=== PATIENT | male | born 1970 | race Caucasian/White ===

== ENCOUNTER 2022-02-27 13:31 | Day surgery (SDC) | payer OTHER ==
[2022-02-27] MEDS ORDERED: LIDOCAINE HCL 2% 100 MG/5 ML IJ ONE (13:32)
[2022-02-27] MEDS ORDERED: Depo-Medrol 40 MG/ML IM ONE (13:32)
[2022-02-27] MEDS ORDERED: DIPRIVAN 200 MG/20 ML IV ONE (16:31)
[2022-02-27] MEDS ORDERED: Lactated Ringers 1,000 ML IV ONE (17:33)
--- NOTE | 2022-02-27 19:20 | XRAY ---
Indication: Bilateral L4-S1 MBB. Intraoperative fluoroscopy provided for 14 seconds. Single digital spot image submitted for interpretation demonstrates posterior needle tips projecting over the expected left and right L4-S1 nerve roots. Correlate with intraoperative findings/report.
--- NOTE | 2022-02-28 08:32 | XRAY ---
14 seconds of fluoroscopy was used in surgery for a bilateral L4-S1 MBB.
== END 2022-02-27 17:00 | disposition home or self-care (01) ==
LOC: SDC-PAIN 13:31
PROVIDERS: ATTEND Psychiatry & Neurology Pain Medicine
DX: M47.816 Spondylosis without myelopathy or radiculopathy, lumbar region (principal); Z79.899 Other long term (current) drug therapy
CPT/HCPCS: 64493; 64494; 72020; 77002; J1030; J2704

== ENCOUNTER 2022-03-13 08:33 | Day surgery (SDC) | payer OTHER ==
[2022-03-13] MEDS ORDERED: BUPIVACAINE 0.5% VIAL IJ ONE (08:34)
[2022-03-13] MEDS ORDERED: Depo-Medrol 40 MG/ML IM ONE (08:34)
--- NOTE | 2022-03-13 11:17 | XRAY ---
Indication: Bilateral L4-S1 MBB. Intraoperative fluoroscopy provided for 14 seconds. Single digital spot image submitted for interpretation demonstrates posterior needle tips projecting over the expected left and right L4-S1 nerve root. Correlate with intraoperative findings/report.
--- NOTE | 2022-03-13 11:22 | XRAY ---
14 seconds fluoroscopy time in surgery for bilateral L4-S1 MBB.
[2022-03-13] MEDS ORDERED: Lactated Ringers 1,000 ML IV ONE (13:26)
== END 2022-03-13 10:30 | disposition home or self-care (01) ==
LOC: SDC-PAIN 08:33
PROVIDERS: ATTEND Psychiatry & Neurology Pain Medicine
DX: M47.816 Spondylosis without myelopathy or radiculopathy, lumbar region (principal); Z79.899 Other long term (current) drug therapy
CPT/HCPCS: 64493; 64494; 72020; 77002; J1030

== ENCOUNTER 2022-04-17 15:10 | Day surgery (SDC) | payer OTHER, BC ==
[2022-04-17] MEDS ORDERED: BUPIVACAINE 0.5% VIAL IJ ONE (15:11)
[2022-04-17] MEDS ORDERED: LIDOCAINE HCL 1% 50 MG/5 ML VL PF IJ ONE (15:11)
[2022-04-17] MEDS ORDERED: Depo-Medrol 40 MG/ML IM ONE (15:11)
[2022-04-17] MEDS ORDERED: Lactated Ringers 1,000 ML IV ONE (16:48)
[2022-04-17] MEDS ORDERED: DIPRIVAN 200 MG/20 ML IV ONE ×2 (17:09→17:19)
--- NOTE | 2022-04-17 19:08 | XRAY ---
Indication: Left L4-S1 RFA. Intraoperative fluoroscopy provided for 23 seconds. 3 digital spot image submitted for interpretation demonstrates posterior needle tips projecting over the expected left L4-S1 nerve roots. Correlate with intraoperative findings/report.
--- NOTE | 2022-04-18 08:37 | XRAY ---
23 seconds of fluoroscopy was in surgery for a left L4-S1 RFA.
== END 2022-04-17 17:45 | disposition home or self-care (01) ==
LOC: SDC-PAIN 15:10
PROVIDERS: ATTEND Psychiatry & Neurology Pain Medicine
DX: M47.816 Spondylosis without myelopathy or radiculopathy, lumbar region (principal); Z79.899 Other long term (current) drug therapy
CPT/HCPCS: 64635; 64636; 72100; 77002; J1030; J2001; J2704

== ENCOUNTER 2022-04-24 14:45 | Day surgery (SDC) | payer OTHER, BC ==
[2022-04-24] MEDS ORDERED: LIDOCAINE HCL 1% 50 MG/5 ML VL PF IJ ONE (14:46)
[2022-04-24] MEDS ORDERED: Depo-Medrol 40 MG/ML IM ONE (14:46)
[2022-04-24] MEDS ORDERED: BUPIVACAINE 0.5% VIAL IJ ONE (14:46)
[2022-04-24] MEDS ORDERED: Lactated Ringers 1,000 ML IV ONE (16:18)
[2022-04-24] MEDS ORDERED: DIPRIVAN 200 MG/20 ML IV ONE (16:55)
[2022-04-24] MEDS ORDERED: Xylocaine-Mpf 2% 5 Ml Vial ONE (16:55)
--- NOTE | 2022-04-24 19:11 | XRAY ---
Indication: Right L4-S1 RFA. Intraoperative fluoroscopy provided for 19 seconds. 4 digital spot image submitted for interpretation demonstrates posterior needle tips projecting over the expected right L4-S1 nerve roots. Correlate with intraoperative findings/report.
--- NOTE | 2022-04-25 09:00 | XRAY ---
19 seconds of fluoroscopy was used in surgery for a right L4-S1 RFA.
== END 2022-04-24 17:30 | disposition home or self-care (01) ==
LOC: SDC-PAIN 14:45
PROVIDERS: ATTEND Psychiatry & Neurology Pain Medicine
DX: M47.816 Spondylosis without myelopathy or radiculopathy, lumbar region (principal); Z79.899 Other long term (current) drug therapy
CPT/HCPCS: 64635; 64636; 72100; 77002; J1030; J2001; J2704

== ENCOUNTER 2022-09-28 06:36 | Emergency (ER) | payer OTHER, BC ==
[2022-09-28] MEDS ORDERED: TORAdol 30 mg Injection IV ONE (06:55)
[2022-09-28] MEDS ORDERED: Sodium Chloride 0.9% 1000 ML 1,000 ML IV STA (07:00)
--- NOTE | 2022-09-28 07:00 | ERPHSYRPT ---
- History of Present Illness Time Seen by Provider: 09/28/22 06:58 Historian: patient Exam Limitations: no limitations Physician History: Patient is 51-year-old male presents to our ED with acute onset left flank pain. Pain described as an ache that begins at his left flank radiates down to his groin area. Patient has a history of kidney stones. No trauma. No fever. Patient admits to several bouts of nausea and vomiting which he attributes to pain severity. at bedside. They voiced no other complaints or concerns at this time. Portions of this note were created with voice recognition technology. There may be grammatical, spelling, punctuation or sound alike errors Timing/Duration: today Activities at Onset: none Quality: aching Abdominal Pain Onset Location: flank Pain Radiation: groin Severity of Pain-Max: moderate Severity of Pain-Current: mild Modifying Factors: Improves With: nothing Associated Symptoms: nausea, vomiting Previous symptoms: same symptoms as today Allergies/Adverse Reactions: No Known Drug Allergies Allergy (Unverified 09/28/22 06:46) Home Medications: Benazepril HCl 5 mg PO DAILY 09/28/22 [History] Carvedilol [Coreg] 25 mg PO DAILY 09/28/22 [History] Cyanocobalamin 500 Mcg [Vitamin B-12 500 MCG] 1,000 mcg PO DAILY 09/28/22 [History] - Review of Systems Constitutional: No Symptoms, No Fever, No Chills Eyes: No Symptoms Ears, Nose, & Throat: No Symptoms Respiratory: No Symptoms, No Cough, No Dyspnea Cardiac: No Symptoms, No Chest Pain, No Edema, No Syncope Abdominal/Gastrointestinal: No Symptoms, No Abdominal Pain, No Nausea, No Vomi ting, No Diarrhea Genitourinary Symptoms: No Symptoms, No Dysuria Musculoskeletal: No Symptoms, No Back Pain, No Neck Pain Skin: No Symptoms, No Rash Neurological: No Symptoms, No Dizziness, No Focal Weakness, No Sensory Changes Psychological: No Symptoms Endocrine: No Symptoms Hematologic/Lymphatic: No Symptoms Immunological/Allergic: No Symptoms All Other Systems: Reviewed and Negative - Nursing Vital Signs Nursing Vital Signs: Initial Vital Signs Temperature 97.2 F 09/28/22 06:50 Pulse Rate 77 09/28/22 06:50 Respiratory Rate 20 09/28/22 06:50 Blood Pressure 152/101 09/28/22 06:50 O2 Sat by Pulse Oximetry 98 09/28/22 06:50 Pain Scale Pain Intensity 8 - Physical Exam General Appearance: no apparent distress, alert Eye Exam: PERRL/EOMI, eyes nml inspection Ears, Nose, Throat Exam: normal ENT inspection, pharynx normal, moist mucous membranes Neck Exam: normal inspection, non-tender, supple, full range of motion Respiratory Exam: normal breath sounds, lungs clear, airway intact, No re spiratory distress Cardiovascular Exam: regular rate/rhythm, normal heart sounds, normal peripheral pulses Gastrointestinal/Abdomen Exam: soft, tenderness (Mild left flank tenderness.), No mass Back Exam: normal inspection, normal range of motion, No CVA tenderness, No vertebral tenderness Extremity Exam: normal inspection, normal range of motion, pelvis stable Neurologic Exam: alert, oriented x 3, cooperative, normal mood/affect, nml cerebellar function, sensation nml, No motor deficits Skin Exam: normal color, warm, dry Lymphatic Exam: No adenopathy SpO2 Interpretation: normal SpO2: 98 O2 Delivery: Room Air - Course Nursing assessment & vital signs reviewed: Yes - CT Exams Abdomen/Pelvis CT Interpretation: Tele-radiologist Report (Left mid ureteral stone causing mild hydronephrosis perinephric fat stranding likely secondary to acute obstruction. Multiple splenic calcific old granuloma hepatic metallic density suggestive of previous intervention to be correlated with clinically left basal calcified nodule likely old granuloma) Ordered Tests: Active Orders 24 hr Category Date Time Status IV Insertion STAT Care 09/28/22 06:55 Active ABDOMEN AND PELVIS W/0 CONTRAS [CT] Stat Exams 09/28/22 06:56 Taken CBC W DIFF Stat Lab 09/28/22 07:00 Completed CMP Stat Lab 09/28/22 07:00 Completed UA W/RFX UR CULTURE Stat Lab 09/28/22 09:05 Completed Medication Summary Discontinued Medications Generic Name Dose Route Start Last Admin Trade Name Freq PRN Reason Stop Dose Admin Hydromorphone HCl 0.5 mg 09/28/22 10:53 09/28/22 10:59 Hydromorphone 1 Mg/1ml Inj IV 09/28/22 10:54 0.5 mg STAT ONE Administration Hydromorphone HCl Confirm 09/28/22 10:58 Hydromorphone 1 Mg/1ml Inj Administered 09/28/22 10:59 Dose 1 mg .ROUTE .STK-MED ONE Sodium Chloride 1,000 mls @ 999 mls/hr 09/28/22 07:00 09/28/22 08:08 Sodium Chloride 0.9% 1000 Ml IV 09/28/22 08:00 Infused .Q1H1M STA Infusion Sodium Chloride Confirm 09/28/22 07:02 Sodium Chloride 0.9% 1000 Ml Administered 09/28/22 07:03 Dose 1,000 mls @ ud .ROUTE .STK-MED ONE Ketorolac Tromethamine 30 mg 09/28/22 06:55 09/28/22 07:04 Ketorolac Tromethamine 30 Mg/Ml Inj IV 09/28/22 06:56 30 mg STAT ONE Administration Ketorolac Tromethamine Confirm 09/28/22 07:02 Ketorolac Tromethamine 30 Mg/Ml Inj Administered 09/28/22 07:03 Dose 30 mg .ROUTE .STK-MED ONE Morphine Sulfate 4 mg 09/28/22 08:39 09/28/22 08:54 Morphine Sulfate 4 Mg/Ml Injection IV 09/28/22 08:40 4 mg STAT ONE Administration Morphine Sulfate Confirm 09/28/22 08:52 Morphine Sulfate 4 Mg/Ml Injection Administered 09/28/22 08:53 Dose 4 mg .ROUTE .STK-MED ONE Ondansetron HCl Confirm 09/28/22 07:05 Ondansetron Hcl 4 Mg/2 Ml Vial Administered 09/28/22 07:06 Dose 4 mg .ROUTE .STK-MED ONE Ondansetron HCl 4 mg 09/28/22 07:09 09/28/22 07:09 Ondansetron Hcl 4 Mg/2 Ml Vial IV 09/28/22 07:10 4 mg STAT ONE Administration Lab/Rad Data: Laboratory Result Diagrams 09/28/22 07:00 09/28/22 07:00 Laboratory Results 09/28/22 09/28/22 09/28/22 Range/Units 09:05 07:00 07:00 WBC 8.3 (4.0-10.5) x10^3/uL RBC 4.97 (4.1-5.6) x10^6/uL Hgb 15.3 (12.5-18.0) g/dL Hct 45.1 (42-50) % MCV 90.7 (78-100) fL MCH 30.8 (26-32) pg MCHC 33.9 (32-36) g/dL RDW 12.3 (11.5-14.0) % Plt Count 195 (150-450) x10^3/uL MPV 10.5 (7.5-11.0) fL Gran % 79.7 H (36.0-66.0) % Immature Gran % (Auto) 0.2 (0.00-0.4) % Nucleat RBC Rel Count 0.0 (0.00-0.1) % Eos # (Auto) 0.07 (0-0.5) x10^3/uL Immature Gran # (Auto) 0.02 (0.00-0.03) x10^3u/L Absolute Lymphs (auto) 1.05 (1.0-4.6) x10^3/uL Absolute Monos (auto) 0.51 (0.0-1.3) x10^3/uL Absolute Nucleated RBC 0.00 (0.00-0.01) x10^3u/L Lymphocytes % 12.7 L (24.0-44.0) % Monocytes % 6.2 (0.0-12.0) % Eosinophils % 0.8 (0.00-5.0) % Basophils % 0.4 (0.0-0.4) % Absolute Granulocytes 6.57 (1.4-6.9) x10^3/uL Basophils # 0.03 (0-0.4) x10^3/uL Sodium 140 (137-145) mmol/L Potassium 4.3 (3.5-5.1) mmol/L Chloride 107 (98-107) mmol/L Carbon Dioxide 24 (22-30) mmol/L Anion Gap 13.4 (5-15) MEQ/L BUN 16 (9-20) mg/dL Creatinine 1.11 (0.66-1.25) mg/dL Estimated GFR > 60.0 ML/MIN Glucose 108 H (74-106) mg/dL Calcium 9.3 (8.4-10.2) mg/dL Total Bilirubin 0.90 (0.2-1.3) mg/dL AST 33 (17-59) U/L ALT 35 (0-50) U/L Alkaline Phosphatase 83 (38-126) U/L Serum Total Protein 6.8 (6.3-8.2) g/dL Albumin 4.2 (3.5-5.0) g/dL Urine Color Yellow (Yellow) Urine Appearance Clear (Clear) Urine pH 6.0 (4.6-8.0) Ur Specific [place] 1.010 (1.005-1.030) Urine Protein Negative (Negative) Urine Glucose (UA) Negative (Negative) mg/dL Urine Ketones Negative (Negative) Urine Blood Negative (Negative) Urine Nitrite Negative (Negative) Urine Bilirubin Negative (Negative) Urine Urobilinogen 0.2 (0.2) mg/dL Ur Leukocyte Esterase Negative (Negative) U Hyaline Cast (Auto) 11-20 (0-2) /LPF Urine Microscopic RBC 0-2 (0-5) /HPF Urine Microscopic WBC 0-2 (0-5) /HPF Ur Epithelial Cells None Seen (None Seen) /HPF Urine Bacteria None Seen (None Seen) /HPF Urine Culture Reflexed NO (NO) - Progress Progress: improved Progress Note: 09/28/22 11:[address] Mckinney ER physician at [facility] who accepts transfer. Transfer accepted by Dr. Mckinney at 11:05 AM. Plan of care discussed with patient. He agrees to transfer to [facility] for further evaluation and treatment. Per Dr. Mckinney we anticipate procedure will likely be performed tomorrow. Patient is a 51-year-old male presents to our ED for evaluation of acute onset left-sided flank pain. Patient has a history of obstructive uropathy/kidney stones. Patient's last stone was 8 mm and required surgical removal. Patient stone today is 8 mm as well. It is located mid ureter with hydronephrosis and perinephric fat stranding. Patient's pain is significant. Patient was treated with Toradol morphine and now Dilaudid for pain control. [facility] and unable to [facility] our patient. Patient will be transferred to [facility] instead. Patient agrees to plan of care. Testing ordered includes CBC CMP CT abdomen pelvis without contrast. Laboratory work-up essentially nonremarkable. CT abdomen pelvis significant for an 8 mm obstructive ureteral lithiasis. Urinalysis negative for UTI. 1 L normal saline infused. Complexity of problems addressed is moderate acute complicated No critical care time. Complex of data reviewed and analyzed is extensive. Test ordered. Test r eviewed and clinically correlated with history and physical examination. Findings are diagnostic. Patient's history and current physical exam is commensurate with our imaging findings. Management and disposition discussed with Dr. Mckinney ER physician at [facility] who accepts transfer at 11:05 AM. Risk complication and or risk of morbidity/mortality of patient management is high. Patient will require higher level of care. Patient requires hospitalization and will be transferred to [facility] for further evaluation and treatment. Vital stable. Time spent to transfer patient is approximately 15 to 20 minutes. Plan of care established for shared decision making. at bedside. They voiced no other complaints or concerns at this time. Patient resting comfortably. Pain well controlled at this time. Portions of this note were created with voice recognition technology. There may be grammatical, spelling, punctuation or sound alike errors Discussed with .: Other Counseled pt/family regarding: lab results, diagnosis, rad results - Departure Departure Disposition: Transfer Clinical Impression: Ureterolithiasis, Hydronephrosis, Renal colic on left side Condition: Stable Critical Care Time: No Referrals: [facility],'[facility] [Primary Care Provider] - Follow up/PCP as directed
[2022-09-28] MEDS ORDERED: TORAdol 30 mg Injection ONE (07:02)
[2022-09-28] MEDS ORDERED: Sodium Chloride 0.9% 1000 ML 1,000 ML ONE (07:02)
[2022-09-28] MEDS ORDERED: Zofran 4 MG/2 ML VIAL ONE ×2 (07:05→11:42)
[2022-09-28] MEDS ORDERED: Zofran 4 MG/2 ML VIAL IV ONE ×2 (07:09→11:42)
[2022-09-28 07:13] LABS: Absolute Neutrophil Ct (ANC) 6.57 x10^3/uL (1.4-6.9); BASOPHIL % 0.4 % (0.0-0.4); Basophil (Absolute #) 0.03 x10^3/uL (0-0.4); Eosinophil % 0.8 % (0.00-5.0); Eosinophil (Absolute #) 0.07 x10^3/uL (0-0.5); Hematocrit 45.1 % (42-50); Hemoglobin 15.3 g/dL (12.5-18.0); IMMATURE GRAN # 0.02 x10^3u/L (0.00-0.03); IMMATURE GRAN % 0.2 % (0.00-0.4); Lymphocyte (Absolute #) 1.05 x10^3/uL (1.0-4.6); Lymphocytes % 12.7 % (24.0-44.0); Mean Cell Volume 90.7 fL (78-100); Mean Corpuscular Hemoglobin 30.8 pg (26-32); Mean Corpuscular Hgb Concent. 33.9 g/dL (32-36); Mean Platelet Volume 10.5 fL (7.5-11.0); Monocyte (Absolute #) 0.51 x10^3/uL (0.0-1.3); Monocytes % 6.2 % (0.0-12.0); Neutrophil % 79.7 % (36.0-66.0); Platelet Count 195 x10^3/uL (150-450); Red Blood Count 4.97 x10^6/uL (4.1-5.6); Red Cell Distribution Width 12.3 % (11.5-14.0); White Blood Count 8.3 x10^3/uL (4.0-10.5)
[2022-09-28 07:14] VITALS: TEMP 97.2
[2022-09-28 07:29] LABS: ALBUMIN 4.2 g/dL (3.5-5.0); ALKALINE PHOSPHATASE 83 U/L (38-126); ANION GAP 13.4 MEQ/L (5-15); BLOOD UREA NITROGEN 16 mg/dL (9-20); CHLORIDE 107 mmol/L (98-107); Calcium 9.3 mg/dL (8.4-10.2); Carbon Dioxide 24 mmol/L (22-30); Creatinine 1 1.11 mg/dL (0.66-1.25); EST GLOMERULAR FILTRATION RATE > 60.0 ML/MIN; Glucose 108 mg/dL (74-106); Potassium 4.3 mmol/L (3.5-5.1); SGOT/AST 33 U/L (17-59); SGPT/ALT 35 U/L (0-50); SODIUM 140 mmol/L (137-145); Total Protein 6.8 g/dL (6.3-8.2)
[2022-09-28] MEDS ORDERED: MORPHINE SULFATE 4 MG INJ IV ONE (08:39)
[2022-09-28] MEDS ORDERED: MORPHINE SULFATE 4 MG INJ ONE (08:52)
[2022-09-28 09:10] LABS: Appearance Clear (Clear); Bacteria None Seen /HPF (None Seen); Bilirubin Negative (Negative); Blood Negative (Negative); Epithelial Cells None Seen /HPF (None Seen); Glucose, Urine Negative (Negative); Ketones Negative (Negative); Leukocyte Esterase Negative (Negative); Nitrite Negative (Negative); Protein,Urine Dip Negative (Negative); RBC 0-2 /HPF (0-5); Urobilinogen 0.2 mg/dL (0.2); WBC 0-2 /HPF (0-5)
[2022-09-28 09:11] LABS: ADD URINE CULTURE? NO (NO)
[2022-09-28 10:42] VITALS: O2SAT 98
[2022-09-28] MEDS ORDERED: Hydromorphone 1 mg/ml Injection IV ONE (10:53)
[2022-09-28] MEDS ORDERED: Hydromorphone 1 mg/ml Injection ONE (10:58)
[2022-09-28 11:12] VITALS: PULSE 70
[2022-09-28 12:22] VITALS: BP 143/96; RESP 18
--- NOTE | 2022-10-01 09:52 | XRAY ---
CLINICAL HISTORY:pain COMPARISON:None. TECHNIQUES:CT scan of the abdomen and pelvis without intravenous contrast administration. FINDINGS: The liver is of average size, regular contour and homogeneous texture with no focal lesion could be detected on non-contrast basis. There is metallic density within the right lobe suggestive of previous intervention. No intra hepatic biliary radical dilatation. The GB is surgically removed. The spleen is of average size and shape with homogeneous parenchyma and no focal lesion could be noted on non-contrast basis. Multiple splenic calcific foci are noted likely old granuloma. The left kidney is of average size and shape. It shows mild back pressure chagnes secondary to a mid ureteric obstructive stone measuring 8 mm in size and 1200 HU in density with proximal dilatation. There is stranding of the perinephric fat. The right kidney is of normal size, shape and parenchymal thickness with no stones, back pressure changes or space occupying lesions on non-contrast basis. The other retroperitoneal structures including the pancreas and adrenal glands are grossly within normal limits. No significant lymph william enlargement or ascetic fluid collection. The prostate is of average size and shape. Normal filling of the urinary bladder with no stones, masses, or diverticula. Bone window settings showed degenerative changes of the lumbar spine. Lung window settings showed left basal calcified nodule likely old granuloma. IMPRESSION: Left mid ureteric obstructive stone wtih mild hydronephrosis and perinephric fat stranding suggestive of acute obstruction. Mutliple splenic calcific old granuloma. Hepatic metallic density suggestive of previous intervention to be correlated with clinical history. Left basal calcified nodule likely old granuloma. Electronically Signed by: Chano Alaniz MD. (09/28/2022 08:57:50 REMEDIATION TECHNICIAN)
== END 2022-09-28 12:19 | disposition short-term general hospital (02) ==
LOC: ED 06:36
DX: N13.2 Hydronephrosis with renal and ureteral calculous obstruction (principal); Z87.442 Personal history of urinary calculi; R10.9 Unspecified abdominal pain; R11.2 Nausea with vomiting, unspecified; Z79.899 Other long term (current) drug therapy
CPT/HCPCS: 36000; 36415; 74176; 80053; 81001; 85025; 96374; 96375; 96376; 99285; J1170; J1885; J2270; J2405